=== PATIENT | male | born 1970 | race Caucasian/White ===

== ENCOUNTER 2021-08-02 08:41 | Day surgery (SDC) | payer BC ==
[2021-08-02] MEDS ORDERED: Morphine 2 MG/ML SYRINGE IVPUSH ONE (09:47)
[2021-08-02] MEDS ORDERED: Lactated Ringers 1,000 ML IV ONE (09:47)
[2021-08-02] MEDS ORDERED: Iopamidol 612 MG/ML 100 ML Bottle IVPUSH ONE (09:51)
[2021-08-02] MEDS ORDERED: Sodium Chloride 0.9% 10 ML Syringe FLUSH PRN (09:51)
[2021-08-02] MEDS ORDERED: Iopamidol 612 MG/ML 50 ML SDV IVPUSH ONE (09:51)
[2021-08-02] MEDS ORDERED: Lactated Ringers 1,000 ML IV SCH (10:00)
[2021-08-02] MEDS ORDERED: Albuterol 0.083% 2.5 MG/3 ML Neb Soln NEB SCH (12:23)
[2021-08-02] MEDS: Ondansetron 4 MG/2 ML SDV IVPUSH ONE ×2 (12:45→13:34)
[2021-08-02] MEDS ORDERED: Ketorolac 30 MG/ML SDV ONE (13:13)
[2021-08-02] MEDS ORDERED: Lidocaine 1% 6 ML ONE (13:13)
[2021-08-02] MEDS ORDERED: Dexamethasone 4 MG/ML 5 ML MDV ONE (13:13)
[2021-08-02] MEDS ORDERED: Ondansetron 4 MG/2 ML SDV ONE (13:13)
[2021-08-02] MEDS ORDERED: Propofol 200 MG/20 ML SDV ONE (13:13)
[2021-08-02] MEDS ORDERED: HYDROmorphone 0.5 MG/0.5 ML Syringe ONE (13:13)
[2021-08-02] MEDS ORDERED: Rocuronium 50 MG/5 ML Vial ONE (13:13)
[2021-08-02] MEDS ORDERED: Midazolam 1 MG/ML 2 ML SDV ONE (13:14)
[2021-08-02] MEDS ORDERED: fentaNYL 100 MCG/2 ML SDV ONE (13:14)
[2021-08-02] MEDS ORDERED: Sugammadex Sodium 200 MG/2 ML VIAL ONE (13:16)
[2021-08-02] MEDS ORDERED: cefOXitin 2 GM in Premix Bag 1 BAG IV ONE (14:00)
[2021-08-02] MEDS ORDERED: Bupivacaine 0.5%/EPINEPHrine 1:200,000 50 ML MDV ONE (14:01)
[2021-08-02] MEDS ORDERED: ePHEDrine 50 MG/ML SDV ONE (14:35)
[2021-08-02] MEDS ORDERED: HYDROmorphone 0.5 MG/0.5 ML Syringe IVPUSH PRN (15:29)
[2021-08-02] MEDS ORDERED: Ondansetron 4 MG/2 ML SDV IVPUSH PRN (15:29)
[2021-08-02] MEDS ORDERED: fentaNYL 100 MCG/2 ML SDV IVPUSH PRN (15:29)
[2021-08-02 18:37] VITALS: BP 116/70; PULSE 81
== END 2021-08-02 16:28 | disposition home or self-care (01) ==
LOC: JD.ED 08:41 → JD.SDS 12:19
PROVIDERS: ATTEND Surgery
DX: K35.80 Unspecified acute appendicitis (principal); C43.59 Malignant melanoma of other part of trunk; E11.9 Type 2 diabetes mellitus without complications; F17.210 Nicotine dependence, cigarettes, uncomplicated; E66.9 Obesity, unspecified; E78.00 Pure hypercholesterolemia, unspecified; I10 Essential (primary) hypertension; Z79.84 Long term (current) use of oral hypoglycemic drugs; Z79.899 Other long term (current) drug therapy; Z68.35 Body mass index [BMI] 35.0-35.9, adult
CPT/HCPCS: 11606; 36415; 44970; 74177; 80053; 81001; 85025; 94640; 99285; J0694; J1100; J1170; J1885; J2250; J2405; J2704; J3010; J3490; J7120; Q9967; 00840; 99140; 99284